=== PATIENT | male | born 1950 | race Caucasian/White ===

== ENCOUNTER → 2017-04-05 | Outpatient (CLI) | payer OTHER ==
[~2017-04-05] MED LIST: ALLEGRA-D 24 H1 EACH PO; ASPIR 8181 MG PO; BREO ELLIPTA 11 EACH; CARDIOTAB PO; CRESTOR10 MG PO; DUONEB 2.5-0.5 M3 ML INH; DYMISTA NASAL S23 GM NS; IBUPROFEN 200200 M1 PO; LIPITOR 20 MG T20 M1 PO; LOPRESSOR PO; LOPRESSOR25 PO; NAPROSYN500 MG; NITROGLYCERIN0.4 MG SUBLING; OMEGA-31000 M1 PO; PREDNISONE 20 M20 M1 PO; VENTOLIN HFA 1818 GM INH; VENTOLIN HFA INH8 GM INH; ZPAK PO; [UNRECOGNIZED DRUG - OTHER] PO; astelin
== END ==
LOC: CAT 09:20
DX: J32.9 Chronic sinusitis, unspecified (principal)